=== PATIENT | female | born 1980 | race Hispanic/Latino ===

== ENCOUNTER 2018-03-19 17:00 | Day surgery (SDC) | payer OTHER ==
[2018-03-19 17:24] VITALS: BP 126/77; TEMP 97.8; BMI 31.8
[2018-03-19] MEDS ORDERED: Betamet Acet/Betamet Na Ph 30 MG/5 ML VIAL IM SCH (18:00)
--- NOTE | 2018-03-19 19:06 | PRG ---
DATE OF SERVICE: 03/19/2018 REASON FOR PRESENTATION: Shortened cervical length on ultrasound [facility] [facility] HISTORY OF PRESENT ILLNESS: This patient is a 37-year-old 4, para 3 at 32 weeks gestation, w ho was seen at the Clinic. She had a ultrasound ordered for what I suspect with marques shi of small for gestational age. The patient's antepartum record is not available on the unit. Malika cutler does not have her clinic yellow card. She reports 3 previous spontaneous vaginal deliveri es at term. She denies complications with this . She has a 3-hour GTT scheduled for tomorr ow. Ultrasound at [facility] was interpreted to me as shortened, approximately 2 cm cervix, no dilatation noted, appropriate for gestational age with a 4 pound 12 ounce estimated weight, cep halic presentation with amniotic fluid index of 9. The patient denies significant contractions, blee ding, and reports an active fetus. OB AND TUBE CUTTER HISTORY: at term. PAST MEDICAL HISTORY: Denies. PAST SURGICAL HISTORY: Denies. ALLERGIES: Denies. MEDICATIONS: vitamins. SOCIAL HISTORY: Denies tobacco, alcohol, or drug use. FAMILY HISTORY: Noncontributory. REVIEW OF SYSTEMS: Noncontributory. PHYSICAL EXAMINATION: GENERAL: female, in no acute distress. VITAL SIGNS: Temperature 98.5, respirations 18, blood pressure 118/72, pulse 85. HEENT: Within normal limits. LUNGS: Clear to auscultation bilaterally. HEART: Regular rate and rhythm. ABDOMEN: Soft and nontender with a fundal height of 33 cm. FHTs are 130s to 140s. PELVIC: Vulva without lesions. Vagina without discharge. Cervix is closed, approximately 50% effac ed, soft and posterior. heart rate tracing was carried out. Uterine irritability is noted approximately every 3-4 imke steph with a category 1 heart rate tracing baseline of 130s, positive accelerations to 150s. IMPRESSION: Somewhat shortened cervix without cervical dilatation with uterine irritability. PLAN: 1. PO hydration. 2. Betamethasone 12 mg now and repeat one time in 24 hours. 3. The patient was advised to postpone 3-hour GTT for 7 days, status post betamethasone administrati on. Conversation with the patient and history was taken with online translation services.
== END 2018-03-19 18:30 | disposition home or self-care (01) ==
LOC: L&D/OP 17:00
PROVIDERS: ATTEND Obstetrics & Gynecology
DX: O26.873 Cervical shortening, third trimester (principal); O26.893 Other specified pregnancy related conditions, third trimester; N85.8 Other specified noninflammatory disorders of uterus; Z3A.32 32 weeks gestation of pregnancy
CPT/HCPCS: 76805; 96372; 99283

== ENCOUNTER 2018-03-20 18:04 | Day surgery (SDC) | payer OTHER ==
[2018-03-20] MEDS ORDERED: Betamet Acet/Betamet Na Ph 30 MG/5 ML VIAL IM SCH (18:30)
[2018-03-20 18:53] VITALS: BMI 29.2
[2018-03-20 18:54] VITALS: BP 119/66; TEMP 98.5
== END 2018-03-20 18:30 | disposition home or self-care (01) ==
LOC: L&D/OP 18:04
PROVIDERS: ATTEND Obstetrics & Gynecology
DX: O26.90 Pregnancy related conditions, unspecified, unspecified trimester (principal)

== ENCOUNTER 2018-04-13 13:37 | Outpatient (CLI) | payer OTHER ==
--- NOTE | 2018-04-13 16:10 | ULT ---
LIMITED OBSTETRICAL ULTRASOUND FOR BIOPHYSICAL PROFILE 04/13/18 FINDINGS: There is a single live intrauterine gestation in vertex presentation. Cardiac activity is noted at 13 5 beats per minute. JUSTINO is noted at 15.1 cm. The fetus received 2 out of 2 for tone, 2 out of 2 for breathing, 2 out of 2 for mo vement, 2 out of 2 for amniotic fluid. The placenta is posterior in location without evidence of previa. IMPRESSION: Biophysical profile is 8 out of 8. POS: [facility]
--- NOTE | 2018-04-13 16:13 | ULT ---
ADDENDUM: Limited obstetrical ultrasound for biophysical profile. The images were submitted with the IOR[employer] l profile. The average gestational age by ultrasound is 36 weeks, 4 days. Estimated due date of 05/07/18. Estimat ed weight is 3001 grams plus/minus 444 grams (6 lb. 10 oz plus/minus 16 oz.). The biparietal diameter is 8.93 cm giving an estimated gestational age of 36 weeks and 1 day. Head circumference was 33.02 cm giving an estimated gestational age of 37 weeks and 4 days. Abdominal circumference was 33.31 cm giving an estimated gestational age of 37 weeks and 2 days. Femur length was 6.88 cm giving an estimated gestational age of 35 weeks and 2 days. POS: [facility]
== END 2018-04-13 13:38 | disposition home or self-care (01) ==
LOC: ULT 13:37
PROVIDERS: ATTEND Nurse Practitioner
DX: O09.523 Supervision of elderly multigravida, third trimester (principal); Z3A.36 36 weeks gestation of pregnancy
CPT/HCPCS: 76815; 76819

== ENCOUNTER 2018-04-23 07:07 | Outpatient (CLI) | payer OTHER | END 2018-04-23 07:08 | disposition home or self-care (01) | LOC: BICULT 07:07 | PROVIDERS: ATTEND Nurse Practitioner | DX: O09.523 Supervision of elderly multigravida, third trimester (principal) | CPT/HCPCS: 76819 ==

== ENCOUNTER 2018-04-23 12:12 | Day surgery (SDC) | payer OTHER ==
[2018-04-23 13:03] VITALS: BMI 32.5
--- NOTE | 2018-04-23 13:48 | PDOC.LDHP ---
Labor and Delivery H&P Chief complaint: other (01/19 BPP) HPI: 37 y/o @ 34.6 WGA by 1T US presents from clinic for 01/19 BPP. She reports normal movement. Endorses a few ctx, every 10 minutes, that are painful. She denies vaginal bleeding, discharge, or LOF. She reports that she was re-dating by an March 19 US to 05/14/18 from 05/29/18 on her initial US. Current gestational age (weeks): 34 (34w6d) Due date: 05/29/18 Dating criteria: first trimester ultrasound Grav: 4 Para: 3 OB History Details: 3 prior term 's Current complications: gestational diabetes (diet controlled) Abnormal US findings: No Current medications: pre- vitamins, iron Previous surgical history: none Allergies/Adverse Reactions: Allergies Allergy/AdvReac Type Severity Reaction Status Date / Time No Known Allergies Allergy Verified 04/23/18 12:54 Social history: none - Physical Exam Vital signs reviewed and normal: yes General: NAD, resting Heart: RRR Lungs: CTAB Abdomen: gravid Extremeties: no edema FHT: category 1 (baseline 130/mod variability/+ accels/- decels), variability present [place] contractions every: 4-6 minutes - OB Labs Blood type: O RH: positive Antibody Screen: negative HIV: negative RPR: negative HEPSAg: negative 1 hour GCT: positive GBS: unknown Rubella: immune - Assessment 1. Abnormal BPP - pt was sent from [facility] for BPP of 01/19. Reports normal movement, reactive NST - Plan -: -Will repeat BPP -Get records from Dr. Billingsley's office for actual due date.
--- NOTE | 2018-04-23 14:33 | PDOC.EVN ---
Event Note - Event Note Event Note: Cervical check: FT/0/-3 Verbal report from ultrasound check reported BPP 03/21. FHT strip is reactive. Will d/c home with strict labor precautions. F/U with Dr. Billingsley on Monday.
--- NOTE | 2018-04-23 15:45 | ULT ---
BIOPHYSICAL PROFILE ULTRSOUND: HISTORY: A 37-year-old female with a history of abnormal BPP in the office on 01/19. COMPARISON: 04/13/18. FINDINGS: Single viable intrauterine fetus in the cephalic presentation. heart rate 141 b.p.m. JUSTINO 14.6 cm. The patient was evaluated over 30 minutes for breathing, tone, and movements. biophysical profile score is 8/8, normal. IMPRESSION: Normal biophysical profile score, 8/8. POS: [facility]
== END 2018-04-23 14:36 | disposition home or self-care (01) ==
LOC: L&D/OP 12:12
PROVIDERS: ATTEND Obstetrics & Gynecology
DX: O28.3 Abnormal ultrasonic finding on antenatal screening of mother (principal); O24.410 Gestational diabetes mellitus in pregnancy, diet controlled; Z3A.34 34 weeks gestation of pregnancy; Z79.899 Other long term (current) drug therapy
CPT/HCPCS: 76819; 99283

== ENCOUNTER 2018-05-18 07:37 | Outpatient (CLI) | payer OTHER ==
--- NOTE | 2018-05-18 09:08 | ULT ---
ULTRASOUND BIOPHYSICAL PROFILE: DATE: 05/18/2018. HISTORY: Elderly multigravida in third trimester. FINDINGS: There is evidence of a single intrauterine gestation in cephalic presentation. Cardiac Doppler demon strates heart tones with a heart rate of 126 b.p.m. The placenta is located in the fundu s without evidence of placenta previa. Subjectively, there is a decrease in the amniotic fluid with decrease in the amniotic fluid index measuring 5.13 cm. A score of 2 was obtained each for movement, tone, breathing movements, and amnioti c fluid volume IMPRESSION: 1. Oligohydramnios with decrease in amniotic fluid index measuring 5.13 cm. The amniotic fluid inde x has decreased when compared to prior study on 04/23/2018 where the amniotic fluid index measured 14. 6 cm. 2. Single intrauterine gestation in cephalic presentation with heart tones documented. 3. Total biophysical profile score is 8 out of 8. 4. The above findings were discussed with Jeimy, a nurse at [facility], on 05/18/2018 at 0814 iron rs. POS: [facility]
== END 2018-05-18 07:38 | disposition home or self-care (01) ==
LOC: BICULT 07:37
PROVIDERS: ATTEND Nurse Practitioner
DX: O09.523 Supervision of elderly multigravida, third trimester (principal); O41.03X0 Oligohydramnios, third trimester, not applicable or unspecified
CPT/HCPCS: 76819

== ENCOUNTER 2018-05-18 08:58 | Day surgery (SDC) | payer OTHER ==
[2018-05-18 09:45] VITALS: BP 119/76; TEMP 99
[2018-05-18 09:49] VITALS: BMI 29.5
--- NOTE | 2018-05-18 10:07 | PDOC.LDHP ---
Labor and Delivery H&P Chief complaint: other (Here for recheck of amniotic fluid status) HPI: Patient was sent from [facility] as a physician of Dr Correa, for amniotic fluid recheck and NST. She went to [facility] and they perfoormed a BPP (by their verbal report)..and although the result was read as 03/21...the JUSTINO was "5". Sent here for NST and recheck. No VB, no LOF, no headaches, no issues. Patient is a 38 yo at 38 weeks 3 days. EDC 05/29/18 Review of Systems: Complete ROS performed and negative as per HPI Current gestational age (weeks): 38 (3 days) Due date: 05/29/18 Dating criteria: last menstrual period Grav: 4 Para: 3 OB History Details: x 3 Current complications: gestational diabetes (A1...diet controlled, no meds) Abnormal US findings: Yes (JUSTINO was "5" at [facility] this AM) Past Medical History: none Current medications: pre-ezequiel vitamins Previous surgical history: none Allergies/Adverse Reactions: Allergies Allergy/AdvReac Type Severity Reaction Status Date / Time No Known Allergies Allergy Verified 04/23/18 12:54 - Physical Exam Vital signs reviewed and normal: yes (119/72 66 99 18) General: NAD Heart: RRR Lungs: CTAB Abdomen: gravid Extremeties: no edema FHT: category 1 [place] contractions every: every 6-10 minutes - Vaginal Exam cm dilated: 3 Effacement: 50% Station: -1 - Assessment Gestational diabetes at early term, multip, here for recheck JUSTINO (isolated borderline at HP). AMA. - Plan Plan: observation in L&D (NST reactive No evidence active labor No HX LOF I have ordered a largest pocket limited sono. If LP is OK and NST reactive, ACOG clears OK for outpatient follow up until 39 weeks if needed for induction)
--- NOTE | 2018-05-18 10:20 | PDOC.EVN ---
Event Note - Event Note Event Note: Follow up: cancel fluid recheck: As per radiology, largest pocket according to the physician...largest pocket was 2.2cm...that is considered normal. Having this new info, and radiology stating "repeat test not indicated"...we will do 40 minute NST and if ok, dsch home. We do not have this report but will get it. Per ACOG PB145 (2014), survellance: "results of the modified BPP are considered normal if the NST is reactive and the amniotic fluid volume is greater than 2 cm in the deepest vertical pocket and are considered abnormal if either the NST is nonreactive or amniotic fluid volume in the deepest vertical pocket is 2 cm or less (ie, oligohydramnios is present)"...."The available data from RCTs indicate that the use of the deepest vertical pocket measurement, as opposed to the amniotic fluid index, to diagnose oligohydramnios is associated with a reduction in unnecessary interventions without an increase in adverse outcomes".
--- NOTE | 2018-05-18 11:01 | PDOC.EVN ---
Event Note - Event Note Event Note: Cervix at recheck maybe 3-4, from 3cm...we will recheck in 2 hours as extended labor observation. cat 1.
[2018-05-18 13:48] LABS: Hemoglobin 13.5 g/dL (12.0-16.0); Mean Corpuscular Hemoglobin 28.9 pg (27.0-31.0); Mean Corpuscular Volume 87.4 fL (78.0-98.0); Mean Platelet Volume 8.6 fL (7.4-10.4); Platelet Count 246 thou/uL (130-400); RBC Distribution Width 16.3 % (11.5-14.5); Red Blood Cell (RBC) Count 4.67 mill/uL (4.20-5.40); White Blood Cell (WBC) Count 7.7 thou/uL (4.8-10.8)
[2018-05-18 14:15] LABS: ALT (SGPT) 17 U/L (8-55); AST (SGOT) 21 U/L (5-34); Albumin 3.7 g/dL (3.5-5.0); Alkaline Phosphatase 174 U/L (40-150); Anion Gap 10 mmol/L (10-20); BUN (Urea Nitrogen) 7 mg/dL (7.0-18.7); Bilirubin, Total 0.4 mg/dL (0.2-1.2); Calc. Creatinine Clearance 124 mL/min (70-130); Calcium 9.2 mg/dL (7.8-10.44); Carbon Dioxide 25 mmol/L (22-29); Chloride 105 mmol/L (98-107); Estimated GFR-MDRD 90; Globulin 3.1 g/dL (2.4-3.5); Glucose 87 mg/dL (70-105); Potassium 3.8 mmol/L (3.5-5.1); Protein, Total 6.8 g/dL (6.0-8.3); Sodium 136 mmol/L (136-145)
--- NOTE | 2018-05-18 14:24 | PDOC.LDPN ---
Labor & Delivery Progress Note - Objective Vital signs reviewed and normal: yes Abnormal vital signs: Isolated HTN BP, not repeated. Dilation: 3 Effacement: 50% Station: -2 FHT: category 1 (120s, mod brijesh, +accels, no decels ) [place] contractions every: q3-7 min, irregular - Assessment (1) 38 weeks gestation of Code(s): Z3A.38 - 38 WEEKS GESTATION OF Current Visit: Yes Status : Acute (2) False labor Code(s): O47.9 - FALSE LABOR, UNSPECIFIED Current Visit: Yes Status: Acute -: I was called to evaluate FHT due to Dr. Valdes in OR. FHTs cat 1. BPP 8/8, JUSTINO at 5, however, DVP > 2 cm, therefore, not oligohydramios. status reassuring. No cervical change per RN exam after several hours of observation. One isolated elevated BP, all others wnl. PreE labs negative. Stable for d/c home with scheduled IOL on 05/22/18. L&D warnings reviewed by RN with pt.
== END 2018-05-18 14:36 | disposition home or self-care (01) ==
LOC: L&D/OP 08:58
PROVIDERS: ATTEND Obstetrics & Gynecology
DX: O47.1 False labor at or after 37 completed weeks of gestation (principal); O24.410 Gestational diabetes mellitus in pregnancy, diet controlled; Z3A.38 38 weeks gestation of pregnancy; Z79.899 Other long term (current) drug therapy
CPT/HCPCS: 36415; 76819; 80053; 82570; 84156; 85027; 99284

== ENCOUNTER 2018-05-18 18:17 | Inpatient (IN) | payer OTHER, SELFPAY ==
[2018-05-18] MEDS ORDERED: Butorphanol Tartrate 1 MG/ML VIAL SLOW IVP PRN (18:40)
[2018-05-18] MEDS ORDERED: HYDROcodone/Acetaminophen 5/325 mg Tablet PO PRN ×2 (18:40)
[2018-05-18] MEDS ORDERED: Promethazine HCl 25 MG/ML VIAL IM PRN ×2 (18:40→20:39)
[2018-05-18] MEDS ORDERED: Ibuprofen 800 MG TAB PO PRN (18:40)
[2018-05-18] MEDS ORDERED: Lidocaine 1% (PF) 30 ML VIAL SC PRN (18:40)
[2018-05-18] MEDS ORDERED: NS / Oxytocin 40 units/1000ml 1,000 ML IV PRN (18:40)
--- NOTE | 2018-05-18 18:43 | PDOC.LDHP ---
Labor and Delivery H&P Chief complaint: contractions, loss of fluid HPI: Patient of Dr Correa Here for increased contractions, LOF Patient was here in L&D as labor obs ealier this am and was 3-4cm them, and oberved for 2 hours, then released home. Now here for LOF and increased contractions. States GBS negative. No fevers, no VB. Good FM. has diet controlled DM this IUP. Review of Systems: as per HPI Current gestational age (weeks): 39 Due date: 05/22/18 Dating criteria: last menstrual period Grav: 4 Para: 3 OB History Details: x 3 Current complications: gestational diabetes (Diet controlled) Abnormal US findings: No Current medications: pre- vitamins Previous surgical history: none Allergies/Adverse Reactions: Allergies Allergy/AdvReac Type Severity Reaction Status Date / Time No Known Allergies Allergy Verified 04/23/18 12:54 Social history: none - Physical Exam Vital signs reviewed and normal: yes General: NAD Heart: RRR Lungs: CTAB Abdomen: gravid (EFW about 7 pounds clinically) Extremeties: no edema - Vaginal Exam cm dilated: 4 Effacement: 90% Station: -1 - Assessment L&D Assessment: term patient in labor GDM (A1)...s/p srom at full term.GBS negative - Plan Plan: admit to L&D, labor augmentation if indicated, informed consent obtained, anesthesia consult for pain management, other (Check dstick. I will notify Madeline to see if available for delivery. Patient has FULL HANDWRITTEN H&P in chart)
[2018-05-18 18:56] LABS: Hemoglobin 13.9 g/dL (12.0-16.0); Mean Corpuscular HGB CONC 33.6 g/dL (32.0-36.0); Mean Corpuscular Hemoglobin 29.4 pg (27.0-31.0); Mean Corpuscular Volume 87.3 fL (78.0-98.0); Mean Platelet Volume 8.8 fL (7.4-10.4); Platelet Count 249 thou/uL (130-400); RBC Distribution Width 16.3 % (11.5-14.5); Red Blood Cell (RBC) Count 4.73 mill/uL (4.20-5.40); White Blood Cell (WBC) Count 8.4 thou/uL (4.8-10.8)
[2018-05-18] MEDS: Lactated Ringer's 1,000 ML IV SCH ×3 (19:00→23:19)
[2018-05-18 19:13] VITALS: BMI 30.5
[2018-05-18 19:34] LABS: HBSAg Index 0.24 S/CO (0-0.99); HIV (1/2) Antibody/Antigen Non-Reactive (NonReactive); HIV 1/2 INDEX 0.08 S/CO (<1.00); Hep B Surf Ag Non-Reactive S/CO (NonReactive); Syphilis Antibody Nonreactive (Nonreactive); Syphilis Antibody Index 0.03 S/CO (<1.00 Non-Reactive)
[2018-05-18] MEDS ORDERED: Bupivacaine 0.5% 20 ML, fentaNYL Citrate/PF 400 MCG in Sodium Chloride 0.9% 72 ML EPIDURAL SCH (19:45)
--- NOTE | 2018-05-18 19:51 | PDOC.EVN ---
Event Note - Event Note Event Note: Cx checked by me: cervix off to maternal left: /-1. I placed an IUPC to see if pitocin needed , but still in latrent phase so we will check IUPC pattern for now.
[2018-05-18] MEDS ORDERED: Bupivacaine 0.75% W/DEXTROSE 8.25% 2 ML AMP ONE (20:04)
[2018-05-18] MEDS ORDERED: Fentanyl 100 MCG/2 ML VIAL ONE (20:11)
[2018-05-18] MEDS ORDERED: Bupivacaine 0.5% 10 ML VIAL ONE (20:11)
[2018-05-18] MEDS ORDERED: Naloxone HCl 0.4 mg/ml Vial IVP PRN ×2 (20:39)
[2018-05-18] MEDS ORDERED: Fentanyl 100 MCG/2 ML VIAL I-THECAL ONE (20:39)
[2018-05-18] MEDS ORDERED: ePHEDrine/0.9% NaCl/PF SYRINGE 50 mg/10 ml SLOW IVP PRN (20:39)
[2018-05-18] MEDS ORDERED: Lactated Ringer's 500 ML IV PRN (20:39)
[2018-05-18] MEDS ORDERED: diphenhydrAMINE 50 MG/ML VIAL IVP PRN (20:39)
[2018-05-18] MEDS ORDERED: Ondansetron HCl/PF 4 MG/2 ML Vial IVP PRN (20:39)
[2018-05-18] MEDS ORDERED: Acetaminophen 325 MG TAB PO PRN (20:39)
[2018-05-18] MEDS ORDERED: Eucerin (Mineral Oil/Petrolatum,White) 30 gm Jar TOP PRN (20:39)
[2018-05-18] MEDS ORDERED: Bupivacaine 0.25% 10 ML VIAL EPIDURAL ONE (20:40)
[2018-05-18] MEDS ORDERED: fentaNYL Citrate/PF 400 MCG, Bupivacaine 0.5% 20 ML in Sodium Chloride 0.9% 72 ML EPIDURAL SCH (20:45)
[2018-05-18] MEDS ORDERED: Communication Order-Pharmacy FS SCH (20:45)
--- NOTE | 2018-05-18 21:34 | PDOC.EVN ---
Event Note - Event Note Event Note: Pitcoin augmentation note: Contractions are hypotonic- every 15 minutes on IUPC. I have ordered pitocin augmentation. Prior SVDs x 3 in past.
[2018-05-18] MEDS: NS w/ Oxytocin 10 units 500 ML IV SCH (22:25)
[2018-05-19] MEDS ORDERED: Bisacodyl 10 MG SUPP PR PRN (04:31)
[2018-05-19] MEDS ORDERED: Benzocaine/Menthol 20-0.5% 60 ML CAN TOP PRN (04:31)
[2018-05-19] MEDS ORDERED: Milk Of Magnesia 30 ML UDCUP PO PRN (04:31)
[2018-05-19] MEDS ORDERED: Adacel (T-DAP) 0.5 ML VIAL IM ONE (04:31)
[2018-05-19] MEDS ORDERED: Lanolin Ointment 7 GM TUBE TOP PRN (04:31)
[2018-05-19] MEDS ORDERED: HYDROcodone/Acetaminophen 5/325 mg Tablet PO PRN (04:31)
--- NOTE | 2018-05-19 04:33 | PDOC.OPDEL ---
OB Operative/Delivery Note Delivery Dr/Surgeon: Aleida/Lucio Assist: Lucio Pre-Delivery Diagnosis: active labor, non-reassuring tracing ( variables with one episode of decel to 80s for about 6 minutes at second stage; variability intact.), other (Maternal inability to push due to epidural, despite turning GREGORIA down.) Procedure/Post Delivery Dx: operative vaginal delivery (Low M-cup vaccuum used after patient given information. 2 vaccuum attempts at +3 station with no everton- offs. Average pressure 40mm X 2) - Findings A - 1 min: 8 - 5 min: 9 - Additional Findings/Plan Placenta delivered: spontaneous (Jasiel, about 3 minutes after child delievered ) Repaired Obstetrical Laceration: other (left hymenal first degree- sutured for hemostasis with 2-0 chromic) Estimated blood loss: 250 (QBL pending) Compilations/Other Findings: baby vigourous female, no need for resus. NICU team present but left after spont cry at No gas sent as baby vigorous No NC Placenta intact Counts correct Post delivery plan: routine recovery
[2018-05-19] MEDS ORDERED: NS / Oxytocin 40 units/1000ml 1,000 ML IV SCH (04:45)
[2018-05-19] MEDS: Ibuprofen 800 MG TAB PO SCH ×3 (06:00→21:51)
[2018-05-19] MEDS: Docusate Calcium (SURFAK) 240 MG CAP PO SCH ×2 (09:45→21:51)
[2018-05-19] MEDS: Prenatal Vitamin 1 TAB PO SCH (09:45)
[2018-05-19] MEDS: Lactated Ringer's 1,000 ML IV SCH (19:30)
[2018-05-19] MEDS: NS w/ Oxytocin 10 units 500 ML IV SCH (21:51)
[2018-05-20] MEDS: Lactated Ringer's 1,000 ML IV SCH ×2 (05:05→12:04)
[2018-05-20 05:09] LABS: Hemoglobin 10.4 g/dL (12.0-16.0); Mean Corpuscular HGB CONC 33.4 g/dL (32.0-36.0); Mean Corpuscular Hemoglobin 29.5 pg (27.0-31.0); Mean Corpuscular Volume 88.5 fL (78.0-98.0); Mean Platelet Volume 8.3 fL (7.4-10.4); Platelet Count 180 thou/uL (130-400); RBC Distribution Width 16.4 % (11.5-14.5); Red Blood Cell (RBC) Count 3.52 mill/uL (4.20-5.40)
--- NOTE | 2018-05-20 06:11 | PDOC.PP ---
Post Progress Note Post Day #: PPD#1 Subjective: Resting comfortably. No c/o. Wants to go home. PO intake tolerated: yes Ambulation: yes Vital Signs (12 hours) Temp Pulse Resp BP Pulse Ox 05/20/18 00:12 98.0 F 73 18 132/61 99 05/19/18 20:35 97.9 F 82 20 124/60 98 Weight Weight 75.75 kg - Physical Examination General: NAD Respiratory: non-labored breathing Psychiatric: normal affect Result Diagrams: 05/20/18 04:52 Additional Labs: Post Labs Blood Type O POSITIVE 05/18/18 18:45 Hep Bs Antigen Non-Reactive S/CO (NonReactive) 05/18/18 18:45 - Assessment/Plan Doing well. DC home. Precautions. F/u Dr. Aadir in 6 weeks.
[2018-05-20] MEDS: Ibuprofen 800 MG TAB PO SCH ×2 (06:46→13:33)
[2018-05-20 08:04] VITALS: BP 111/59; TEMP 97.9
[2018-05-20] MEDS: Docusate Calcium (SURFAK) 240 MG CAP PO SCH (08:53)
[2018-05-20] MEDS: Prenatal Vitamin 1 TAB PO SCH (08:53)
== END 2018-05-20 16:10 | disposition home or self-care (01) | DRG 807 ==
LOC: L&D/OP 18:17 → L&D 19:32 → 3SW 05-19 06:54
PROVIDERS: ADMIT Obstetrics & Gynecology; ATTEND Obstetrics & Gynecology
PROC: 10D07Z6 Extraction of Products of Conception, Vacuum, Via Natural or Artificial Opening (ICD-10-PCS; principal; 2018-05-18)
PROC: 3E0234Z Introduction of Serum, Toxoid and Vaccine into Muscle, Percutaneous Approach (ICD-10-PCS; 2018-05-18)
DX: O24.419 Gestational diabetes mellitus in pregnancy, unspecified control (principal); Z37.0 Single live birth; O70.0 First degree perineal laceration during delivery; Z3A.39 39 weeks gestation of pregnancy; O76 Abnormality in fetal heart rate and rhythm complicating labor and delivery; Z23 Encounter for immunization
CPT/HCPCS: 36415; 51702; 85027; 86780; 86850; 86900; 86901; 87340; 87389; 90715; 99285; A4216; J2001; J3010; J3490; J7050; S0020

== ENCOUNTER 2023-09-02 02:49 | Emergency (ER) | payer SELFPAY ==
[2023-09-02 04:30] LABS: #Monocytes 0.5 thou/uL (0.11-0.59); #Neutrophils 10.2 thou/uL (1.40-6.50); %Basophils 0.2 % (0.0-1.0); %Eosinophils 0.3 % (0.0-10.0); %Lymphocytes 13.3 % (21.0-51.0); %Monocytes 4.2 % (0.0-10.0); %Neutrophils 81.8 % (42.0-75.0); Hemoglobin 14.7 g/dL (12.0-16.0); Mean Corpuscular HGB CONC 34.2 g/dL (32.0-36.0); Mean Corpuscular Hemoglobin 30.8 pg (27.0-31.0); Platelet Count 314 10x3/uL (130-400); RBC Distribution Width 12.1 % (11.5-14.5); Red Blood Cell (RBC) Count 4.78 mill/uL (4.20-5.40); White Blood Cell (WBC) Count 12.4 10x3/uL (4.8-10.8)
[2023-09-02] MEDS ORDERED: Ondansetron PF 4 MG/2 ML Vial ONE (04:30)
[2023-09-02] MEDS ORDERED: Morphine 4 MG/ML VIAL ONE (04:30)
[2023-09-02 04:36] LABS: BHCG - Serum Negative (NEGATIVE); Pregs Control Background? CLEAR/WHITE (CLR/WHITE); Pregs Control Bar Appear? YES (CONTROL BAR)
[2023-09-02 04:53] LABS: ALT (SGPT) 36 U/L (8-55); AST (SGOT) 27 U/L (5-34); Albumin 4.6 g/dL (3.5-5.0); Alkaline Phosphatase 62 U/L (40-110); Anion Gap 14 mmol/L (10-20); BUN (Urea Nitrogen) 9 mg/dL (7.0-18.7); Bilirubin, Total 0.6 mg/dL (0.2-1.2); Calc. Creatinine Clearance 0 mL/min (70-130); Calcium 9.6 mg/dL (7.8-10.44); Carbon Dioxide 21 mmol/L (22-29); Chloride 104 mmol/L (98-107); Estimated GFR 91; Globulin 3.7 g/dL (2.4-3.5); Glucose 139 mg/dL (70-105); Lipase 18 U/L (8-78); Protein, Total 8.3 g/dL (6.0-8.3); Sodium 135 mmol/L (136-145)
[2023-09-02] MEDS ORDERED: Iopamidol-370 76% 500 ML MDV (1 ML CHARGE) ONE (12:49)
[2023-09-02 12:57] LABS: Bacteria/HPF 4+ HPF (None Seen); Bilirubin Negative (Negative); Blood, Urine 3+ (Negative); CAUTI Indications for Culture Dysuria,urgency,freq; Calcium Oxalate Crystals 1+ HPF (None Seen); Clarity Turbid (Clear); Glucose, Urine (Dipstick) Normal (Negative); Ketone, Urine 10 mg/dL (Negative); Leukocyte Negative Leu/uL (Negative); Nitrite Negative (Negative); Protein, Urine (Dipstick) 70 mg/dL (Neg-Trace); Specific Gravity, Urine 1.022 (1.002-1.036); Squamous Epithelial 0-3 HPF (0-3); Urobilinogen Normal mg/dL (Less than 2); WBC/HPF 0-3 HPF (0-3); pH, Urine 6.5 (5.0-9.0)
[2023-09-02 12:59] LABS: Urine Culture Reflex No No
== END 2023-09-02 07:51 | disposition home or self-care (01) ==
LOC: ERS 02:49
DX: K80.50 Calculus of bile duct without cholangitis or cholecystitis without obstruction (principal)
CPT/HCPCS: 36415; 74177; 80053; 81001; 83690; 84703; 85025; 93005; 96374; 96375; J2270; J2405; Q9967

== ENCOUNTER 2023-09-08 06:09 | Observation (INO) | payer SELFPAY ==
[2023-09-08 06:55] LABS: #Eosinphils 0.2 thou/uL (0.0-0.7); #Neutrophils 8.2 thou/uL (1.40-6.50); %Basophils 0.3 % (0.0-1.0); %Eosinophils 2.1 % (0.0-10.0); %Lymphocytes 17.2 % (21.0-51.0); %Monocytes 8.9 % (0.0-10.0); %Neutrophils 71.2 % (42.0-75.0); Hematocrit 43.5 % (36.0-47.0); Hemoglobin 14.7 g/dL (12.0-16.0); Mean Corpuscular HGB CONC 33.8 g/dL (32.0-36.0); Mean Corpuscular Hemoglobin 30.5 pg (27.0-31.0); Mean Corpuscular Volume 90.2 fl (78.0-98.0); Mean Platelet Volume 9.6 fL (7.4-10.4); Platelet Count 381 10x3/uL (130-400); RBC Distribution Width 11.9 % (11.5-14.5); Red Blood Cell (RBC) Count 4.82 mill/uL (4.20-5.40); White Blood Cell (WBC) Count 11.5 10x3/uL (4.8-10.8)
[2023-09-08 07:08] LABS: Bacteria/HPF 3+ HPF (None Seen); Bilirubin Negative (Negative); Blood, Urine 3+ (Negative); CAUTI Indications for Culture Pelvic or flank pain; Clarity Clear (Clear); Glucose, Urine (Dipstick) Normal (Negative); Ketone, Urine 20 mg/dL (Negative); Leukocyte Negative Leu/uL (Negative); Nitrite 2+ (Negative); Protein, Urine (Dipstick) 20 mg/dL (Neg-Trace); Specific Gravity, Urine 1.008 (1.002-1.036); Squamous Epithelial 0-3 HPF (0-3); Urobilinogen Normal mg/dL (Less than 2)
[2023-09-08 07:10] LABS: Urine Culture Reflex No No
[2023-09-08 07:18] LABS: ALT (SGPT) 29 U/L (8-55); AST (SGOT) 26 U/L (5-34); Albumin 4.4 g/dL (3.5-5.0); Alkaline Phosphatase 57 U/L (40-110); Anion Gap 15 mmol/L (10-20); BUN (Urea Nitrogen) 7 mg/dL (7.0-18.7); Bilirubin, Total 0.6 mg/dL (0.2-1.2); Calc. Creatinine Clearance 0 mL/min (70-130); Calcium 9.6 mg/dL (7.8-10.44); Carbon Dioxide 20 mmol/L (22-29); Chloride 103 mmol/L (98-107); Estimated GFR 98; Globulin 4.3 g/dL (2.4-3.5); Glucose 115 mg/dL (70-105); Lipase 32 U/L (8-78); Potassium 4.6 mmol/L (3.5-5.1); Protein, Total 8.7 g/dL (6.0-8.3); Sodium 133 mmol/L (136-145)
[2023-09-08 07:39] LABS: BHCG - Serum Negative (NEGATIVE); Pregs Control Background? CLEAR/WHITE (CLR/WHITE); Pregs Control Bar Appear? YES (CONTROL BAR)
[2023-09-08] MEDS ORDERED: Ondansetron PF 4 MG/2 ML Vial ONE ×2 (08:13→13:07)
[2023-09-08] MEDS ORDERED: Morphine 4 MG/ML VIAL ONE (08:13)
[2023-09-08] MEDS ORDERED: Piperacillin/Tazobactam 3.375 GM VIAL ONE (11:33)
[2023-09-08] MEDS ORDERED: Sodium Chloride 0.9% 100 ML ONE (11:34)
[2023-09-08] MEDS ORDERED: EPINEPHrine 1 MG/ML VIAL ONE (11:46)
[2023-09-08] MEDS ORDERED: Bupivacaine 0.25% HCL 30 ML VIAL ONE (11:47)
[2023-09-08] MEDS ORDERED: Iopamidol-370 76% 500 ML MDV (1 ML CHARGE) ONE (11:48)
[2023-09-08 12:09] LABS: Troponin I Less than 0.010 ng/mL (< 0.028)
[2023-09-08] MEDS ORDERED: fentaNYL PF 100 MCG/2 ML SYRINGE ONE ×2 (12:30→14:33)
[2023-09-08] MEDS ORDERED: PROPOFOL 20 ML ONE (12:31)
[2023-09-08] MEDS ORDERED: Lidocaine 1% PF 5 ML VIAL ONE (12:38)
[2023-09-08] MEDS ORDERED: Rocuronium Bromide 10 MG/ML (10ML VIAL) ONE (12:58)
[2023-09-08] MEDS ORDERED: Dexamethasone 20 MG/5 ML VIAL ONE (13:07)
[2023-09-08] MEDS ORDERED: PHENYLEPHRINE-NS 100 MCG/ML 10 ML SYRINGE ONE (13:09)
[2023-09-08] MEDS ORDERED: SUGAMMADEX SODIUM 200 MG/2 ML VIAL ONE (14:11)
[2023-09-08] MEDS ORDERED: Acetaminophen/Codeine 30-300mg Tablet PO PRN (15:15)
[2023-09-08 17:46] LABS: Troponin I Less than 0.010 ng/mL (< 0.028)
[2023-09-08 17:51] VITALS: TEMP 98.7
[2023-09-08 17:52] VITALS: BP 152/85
== END 2023-09-08 19:12 | disposition home or self-care (01) ==
LOC: ERS 06:09 → SURG B 16:02
PROVIDERS: ADMIT Student in an Organized Health Care Education/Training Program; ATTEND Student in an Organized Health Care Education/Training Program
PROC: 0FT44ZZ Resection of Gallbladder, Percutaneous Endoscopic Approach (ICD-10-PCS; principal; 2023-09-08)
DX: K80.12 Calculus of gallbladder with acute and chronic cholecystitis without obstruction (principal); Z79.899 Other long term (current) drug therapy
CPT/HCPCS: 36415; 74177; 80053; 81001; 83690; 84484; 84703; 85025; 88304; 96365; 96375; C1889; G0378; J0171; J0665; J1100; J2270; J2405; J2543; J2704; J3490; Q9967